=== PATIENT | female | born 1990 | race Caucasian/White ===

== ENCOUNTER → 2024-03-21 13:18 | Outpatient (REF) | payer OTHER, SELFPAY | LOC: RAD 13:18 | PROVIDERS: ATTENDING PHYSICIAN Family Medicine | DX: M25.551 Pain in right hip (principal) | CPT/HCPCS: 73502 ==

== ENCOUNTER → 2024-06-14 15:37 | Outpatient (REF) | payer OTHER, SELFPAY | LOC: RAD 15:37 | PROVIDERS: ATTENDING PHYSICIAN Family Medicine | DX: R68.84 Jaw pain (principal) | CPT/HCPCS: 70110 ==

== ENCOUNTER → 2024-09-17 08:08 | Outpatient (REF) | payer OTHER, SELFPAY | LOC: PAVMRI 08:08 | PROVIDERS: ATTENDING PHYSICIAN Family Medicine | DX: M25.552 Pain in left hip (principal); G89.29 Other chronic pain | CPT/HCPCS: 73721 ==